=== PATIENT | female | born 1940 | race Caucasian/White ===

== ENCOUNTER → 2017-11-05 | Outpatient (CLI) | payer MEDICARE, BC | END | disposition home or self-care (01) | LOC: LAB SHORT 14:24 → LAB 14:24 | DX: R30.0 Dysuria (principal) | CPT/HCPCS: 87086 ==

== ENCOUNTER 2018-04-17 09:37 | Day surgery (SDC) | payer MEDICARE, BC ==
[~2018-04-17] VITALS: Ht 160 cm; Wt 78.5 kg
[~2018-04-17 09:37] MED LIST: LOSARTAN-HCTZ1 EAC2 PO; VITAMIN B125000 MCG PO
[2018-04-17] MEDS ORDERED: CEPHALEXIN 500 MG (12:31)
[2018-04-17] MEDS ORDERED: CRANBERRY250 MG (12:33)
[2018-04-17] MEDS ORDERED: CRANBERRY250 MG PO (12:34)
[2018-04-17] MEDS ORDERED: TOCO1000 PO (12:35)
[2018-04-17] MEDS ORDERED: Vitamin D2000 UNIT PO (12:36)
== END 2018-04-17 14:28 | disposition home or self-care (01) ==
LOC: ORSCSDS 09:37
PROVIDERS: Internal Medicine Gastroenterology
PROC: 0DBK8ZX Excision of Ascending Colon, Via Natural or Artificial Opening Endoscopic, Diagnostic (ICD-10-PCS; principal; 2018-04-17 11:00)
PROC: 0DBM8ZX Excision of Descending Colon, Via Natural or Artificial Opening Endoscopic, Diagnostic (ICD-10-PCS; principal; 2018-04-17 11:00)
DX: Z12.11 Encounter for screening for malignant neoplasm of colon (principal); D12.2 Benign neoplasm of ascending colon; D12.4 Benign neoplasm of descending colon; K57.30 Diverticulosis of large intestine without perforation or abscess without bleeding; K64.8 Other hemorrhoids; I10 Essential (primary) hypertension; K21.9 Gastro-esophageal reflux disease without esophagitis; F17.210 Nicotine dependence, cigarettes, uncomplicated; Z79.899 Other long term (current) drug therapy
CPT/HCPCS: 88305; J7120

== ENCOUNTER → 2022-02-27 | Outpatient (CLI) | payer MEDICARE, BC ==
[~2022-02-27] MED LIST changes: +CEPHALEXIN 500 MG; +CRANBERRY250 MG; +CRANBERRY250 MG PO; +TOCO1000 PO; +Vitamin D2000 UNIT PO
[2022-02-27 15:42] LABS: Source, Urine Clean Catch
[2022-02-27 16:43] LABS: Bacteria Many /hpf; Squamous Epithelial Cells Few /hpf (Few); Transitional Epithelial Cells Rare /hpf (0-Rare); White Blood Cells, Urine 50-100 /hpf (0-5)
== END | disposition home or self-care (01) ==
LOC: LAB SHORT 13:57 → LAB 13:57
PROVIDERS: Family Medicine
DX: R30.0 Dysuria (principal)
CPT/HCPCS: 81015; 87077; 87086; 87186